=== PATIENT | female | born 1995 | race Two or more races ===

== ENCOUNTER 2018-05-02 11:44 | Emergency (ER) | payer MEDICAID, SELFPAY ==
[~2018-05-02] VITALS: Ht 170.2 cm; Wt 132.9 kg
[2018-05-02] MEDS ORDERED: PREN1TAB60 PO (12:22)
[2018-05-02] MEDS ORDERED: MAALOX/HYOSCYAMINE/LIDOCAINE 45 ML BTL PO ONE (12:30)
[2018-05-02 12:36] LABS: BASOPHILS # (AUTO) 0.06 x10^3/uL (0-0.1); BASOPHILS % (AUTO) 1 % (0-1); EOSINOPHILS # (AUTO) 0.14 x10^3/uL (0-0.4); EOSINOPHILS % (AUTO) 1 % (1-7); LYMPHOCYTES # (AUTO) 3.91 x10^3/uL (1-3.4); LYMPHOCYTES % (AUTO) 28 % (22-44); MD NO; MEAN CORPUSCULAR HEMOGLOBIN 24.3 pg (27.0-34.8); MEAN CORPUSCULAR VOLUME 73.7 fL (80-100); MONOCYTES # (AUTO) 0.63 x10^3/uL (0.2-0.8); MONOCYTES % (AUTO) 5 % (2-9); NEUTROPHILS # (AUTO) 9.11 x10^3/uL (1.8-6.8); NEUTROPHILS % (AUTO) 66 % (42-75); PLATELET COUNT 407 x10^3/uL (130-400); RED BLOOD COUNT 4.78 x10^6/uL (3.82-5.3)
[2018-05-02 12:36] LABS: MICROSCOPIC NOT IND
[2018-05-02 12:42] LABS: ALANINE AMINOTRANSFERASE 19 U/L (12-78); ALBUMIN 3.2 g/dL (3.4-5.0); ANION GAP 9 mmol/L (5-15); CALCIUM 8.7 mg/dL (8.5-10.1); CHLORIDE 108 mmol/L (98-107); CREATININE 0.52 mg/dL (0.55-1.02)
[2018-05-02 12:48] LABS: CULTURE INDICATED? NO
[2018-05-02 13:01] LABS: ALKALINE PHOSPHATASE 86 U/L (45-117); BILIRUBIN,TOTAL 0.2 mg/dL (0.2-1.0); TOTAL PROTEIN 7.5 g/dL (6.4-8.2)
[2018-05-02 13:55] VITALS: BP 125/79
== END 2018-05-02 15:02 | disposition home or self-care (01) ==
LOC: ED 12:29
DX: O26.891 Other specified pregnancy related conditions, first trimester (principal); Z3A.08 8 weeks gestation of pregnancy; K80.70 Calculus of gallbladder and bile duct without cholecystitis without obstruction
CPT/HCPCS: 36415; 76700; 76830; 80053; 81003; 83690; 84702; 85025; 99285

== ENCOUNTER 2018-05-07 19:15 | Emergency (ER) | payer MEDICAID ==
[~2018-05-07] VITALS: Ht 170.2 cm; Wt 125.0 kg
[~2018-05-07 19:15] MED LIST: PREN1TAB60 PO
[2018-05-07 20:20] LABS: BASOPHILS # (AUTO) 0.09 x10^3/uL (0-0.1); BASOPHILS % (AUTO) 1 % (0-1); EOSINOPHILS # (AUTO) 0.15 x10^3/uL (0-0.4); EOSINOPHILS % (AUTO) 1 % (1-7); LYMPHOCYTES # (AUTO) 4.33 x10^3/uL (1-3.4); LYMPHOCYTES % (AUTO) 27 % (22-44); MD NO; MEAN CORPUSCULAR HGB CONC 33.7 g/dL (32.4-35.8); MEAN CORPUSCULAR VOLUME 74.2 fL (80-100); MEAN PLATELET VOLUME 7.9 fL (7.4-10.4); MONOCYTES % (AUTO) 4 % (2-9); NEUTROPHILS # (AUTO) 10.62 x10^3/uL (1.8-6.8); NEUTROPHILS % (AUTO) 67 % (42-75); PLATELET COUNT 383 x10^3/uL (130-400); RED CELL DISTRIBUTION WIDTH 16.7 % (9.6-15.2)
[2018-05-07 20:27] LABS: ALANINE AMINOTRANSFERASE 20 U/L (12-78); ANION GAP 11 mmol/L (5-15); CALCIUM 8.6 mg/dL (8.5-10.1); CHLORIDE 106 mmol/L (98-107); CREATININE 0.54 mg/dL (0.55-1.02)
[2018-05-07 20:29] LABS: ALKALINE PHOSPHATASE 84 U/L (45-117); BILIRUBIN,TOTAL 0.3 mg/dL (0.2-1.0); TOTAL PROTEIN 7.5 g/dL (6.4-8.2)
[2018-05-07] MEDS ORDERED: ACETAMINOPHEN 500 MG TABLET ONE (20:48)
[2018-05-07] MEDS ORDERED: ACETAMINOPHEN 500 MG TABLET PO ONE (21:00)
[2018-05-07 22:04] VITALS: BP 148/86
== END 2018-05-07 22:23 | disposition home or self-care (01) ==
LOC: ED 20:41
DX: K80.20 Calculus of gallbladder without cholecystitis without obstruction (principal); R10.11 Right upper quadrant pain
CPT/HCPCS: 36415; 76700; 80053; 83690; 85025; 99285

== ENCOUNTER 2018-11-07 15:42 | Outpatient (CLI) | payer BC, MEDICAID ==
[~2018-11-07] VITALS: Ht 170.2 cm; Wt 132.7 kg
[2018-11-07 16:05] VITALS: BP 136/75
== END 2018-11-07 16:45 | disposition home or self-care (01) ==
LOC: LDOP 15:42
PROVIDERS: ATTEND Student in an Organized Health Care Education/Training Program
DX: O36.8130 Decreased fetal movements, third trimester, not applicable or unspecified (principal); Z3A.37 37 weeks gestation of pregnancy
CPT/HCPCS: 59025; 99211; G0463

== ENCOUNTER 2019-11-23 10:52 | Inpatient (IN) | payer MEDICAID, OTHER ==
[~2019-11-23] VITALS: Ht 170.2 cm; Wt 143.6 kg
[~2019-11-23 10:52] MED LIST changes: +LABE100T6 PO; +OXYC-302 PO
[2019-11-23 11:41] LABS: BASOPHILS # (AUTO) 0.06 x10^3/uL (0-0.1); BASOPHILS % (AUTO) 1 % (0-1); EOSINOPHILS # (AUTO) 0.09 x10^3/uL (0-0.4); EOSINOPHILS % (AUTO) 1 % (1-7); LYMPHOCYTES # (AUTO) 2.38 x10^3/uL (1-3.4); LYMPHOCYTES % (AUTO) 19 % (22-44); MD NO; MEAN CORPUSCULAR HEMOGLOBIN 25.3 pg (27.0-34.8); MEAN CORPUSCULAR HGB CONC 33.2 g/dL (32.4-35.8); MEAN CORPUSCULAR VOLUME 76.3 fL (80-100); MEAN PLATELET VOLUME 8.6 fL (7.4-10.4); MONOCYTES % (AUTO) 4 % (2-9); NEUTROPHILS # (AUTO) 9.63 x10^3/uL (1.8-6.8); NEUTROPHILS % (AUTO) 76 % (42-75); PLATELET COUNT 397 x10^3/uL (130-400); RED BLOOD COUNT 4.53 x10^6/uL (3.82-5.3); RED CELL DISTRIBUTION WIDTH 16.8 % (9.6-15.2)
[2019-11-23 11:54] VITALS: BP 188/111
[2019-11-23 11:56] LABS: CHLORIDE 106 mmol/L (98-107)
[2019-11-23] MEDS ORDERED: PLEASE ENTER HEIGHT AND WEIGHT MC SCH (12:00)
[2019-11-23] MEDS ORDERED: niFEDipine ER 30 MG TABLET.ER PO ONE ×2 (12:00→12:30)
[2019-11-23] MEDS: SODIUM CHLORIDE FLUSH 10ML SYR IVF SCH ×2 (12:00→21:00)
[2019-11-23] MEDS ORDERED: niFEDipine ER 30 MG TABLET.ER ONE (12:00)
[2019-11-23 12:04] LABS: ALANINE AMINOTRANSFERASE 15 U/L (12-78); ALBUMIN 2.3 g/dL (3.4-5.0); ALKALINE PHOSPHATASE 107 U/L (45-117); ANION GAP 10 mmol/L (5-15); BILIRUBIN,TOTAL 0.2 mg/dL (0.2-1.0); CALCIUM 8.9 mg/dL (8.5-10.1); CREATININE 0.54 mg/dL (0.55-1.02); TOTAL PROTEIN 7.6 g/dL (6.4-8.2)
[2019-11-23 12:36] LABS: MICROSCOPIC INDICATED
[2019-11-23] MEDS ORDERED: LABETALOL 5MG/ML, 20ML ONE ×2 (13:17→19:09)
[2019-11-23] MEDS ORDERED: LABETALOL 5MG/ML, 20ML IVPush PRN ×6 (13:30→19:30)
[2019-11-23] MEDS ORDERED: hydrALAzine 20 MG/ML, 1ML IVPush ONE ×2 (13:30→19:30)
[2019-11-23] MEDS ORDERED: BETAMETHASONE 6 MG/ML, 5ML IM ONE (13:32)
[2019-11-23] MEDS ORDERED: LACTATED RINGERS 1,000 ML IV PRN (13:33)
[2019-11-23] MEDS: MAGNESIUM SULF. PMX 20GM/500ML 500 ML IV SCH ×3 (13:58→22:00)
[2019-11-23] MEDS ORDERED: BETAMETHASONE 6 MG/ML, 5ML IM SCH (14:00)
[2019-11-23] MEDS ORDERED: LACTATED RINGERS 1,000 ML IVBOLUS ONE (14:00)
[2019-11-23] MEDS ORDERED: SODIUM CITRATE/CITRIC ACID 30 ML UDC PO ONE (14:00)
[2019-11-23] MEDS ORDERED: METOCLOPRAMIDE 5 MG/ML, 2ML IV ONE (14:00)
[2019-11-23] MEDS ORDERED: MAGNESIUM SULFATE PMX 4GM/100M 100 ML IVPB ONE (14:00)
[2019-11-23] MEDS ORDERED: METOCLOPRAMIDE 5 MG/ML, 2ML ONE (14:06)
[2019-11-23] MEDS ORDERED: SODIUM CITRATE/CITRIC ACID 30 ML UDC ONE (14:07)
[2019-11-23] MEDS ORDERED: OXYTOCIN 10 UNITS/ML, 1ML ONE (14:08)
[2019-11-23] MEDS ORDERED: ONDANSETRON 2MG/ML, 2ML ONE (14:08)
[2019-11-23] MEDS ORDERED: DEXAMETHASONE 4 MG/ML, 1ML ONE (14:08)
[2019-11-23] MEDS ORDERED: KETOROLAC 30 MG/1 ML ONE ×2 (14:08→19:19)
[2019-11-23] MEDS ORDERED: FENTANYL PF 100 MCG/2ML ONE (14:08)
[2019-11-23] MEDS ORDERED: CEFAZOLIN 1,000 MG ONE (14:08)
[2019-11-23] MEDS ORDERED: EPHEDRINE 50 MG/ML, 1ML ONE (14:08)
[2019-11-23] MEDS ORDERED: PHENYLEPHRINE 10 MG/ML ONE (14:08)
[2019-11-23] MEDS ORDERED: NEWBORN KIT ONE (14:15)
[2019-11-23] MEDS ORDERED: OXYTOCIN 30U/ 0.9% NaCL 500ML 0 ML ONE (14:16)
[2019-11-23] MEDS ORDERED: EPHEDRINE 50 MG/ML, 1ML IVPush PRN (14:30)
[2019-11-23] MEDS ORDERED: ALBUTEROL SULFATE 2.5 MG/3 ML NPPB PRN (14:30)
[2019-11-23] MEDS ORDERED: FENTANYL PF 100 MCG/2ML IV PRN (14:30)
[2019-11-23] MEDS ORDERED: HYDROcodone/APAP 7.5-325MG/15ML UDC PO PRN (14:30)
[2019-11-23] MEDS ORDERED: hydrALAzine 20 MG/ML, 1ML IV PRN (14:30)
[2019-11-23] MEDS ORDERED: LABETALOL 5MG/ML, 20ML IV PRN (14:30)
[2019-11-23] MEDS ORDERED: MEPERIDINE/PF 25MG/0.5ML IVPush PRN (14:30)
[2019-11-23] MEDS ORDERED: HYDROmorphone 2 MG/ML, 1ML IVPush PRN (14:30)
[2019-11-23] MEDS ORDERED: PROMETHAZINE 25 MG/ML, 1ML IV PRN (14:30)
[2019-11-23] MEDS ORDERED: OXYcodone 5 MG/5 ML ORAL.SOL UDC PO PRN (14:30)
[2019-11-23] MEDS ORDERED: ONDANSETRON 2MG/ML, 2ML IVPush PRN (14:30)
[2019-11-23] MEDS ORDERED: MIDAZOLAM 1 MG/ML, 2ML IV PRN (14:30)
[2019-11-23] MEDS ORDERED: HYDROmorphone 2 MG/ML, 1ML ONE (15:02)
[2019-11-23] MEDS ORDERED: METOCLOPRAMIDE 5 MG/ML, 2ML IV PRN (15:30)
[2019-11-23] MEDS ORDERED: MORPHINE SULFATE 4 MG/ML, 1ML IVPush PRN (15:30)
[2019-11-23] MEDS ORDERED: ACETAMINOPHEN 325 MG TABLET PO PRN (15:30)
[2019-11-23] MEDS ORDERED: OXYcodone IR 5MG TABLET PO PRN (15:30)
[2019-11-23] MEDS ORDERED: MISOPROSTOL 200 MCG TABLET PR PRN (15:30)
[2019-11-23] MEDS ORDERED: ONDANSETRON 2MG/ML, 2ML IV PRN (15:30)
[2019-11-23] MEDS ORDERED: SIMETHICONE 80 MG CHEW TAB PO PRN (15:30)
[2019-11-23] MEDS ORDERED: CARBOPROST TROMETHAMINE 250 MCG/ML, 1ML IM PRN (15:30)
[2019-11-23] MEDS ORDERED: IBUPROFEN 800 MG TABLET PO PRN (15:30)
[2019-11-23] MEDS ORDERED: OXYTOCIN 30U/ 0.9% NaCL 500ML 500 ML ONE (16:08)
[2019-11-23] MEDS: OXYTOCIN 30U/ 0.9% NaCL 500ML 500 ML IV SCH (16:20)
[2019-11-23] MEDS: LACTATED RINGERS 1,000 ML IV SCH ×2 (16:21→19:30)
[2019-11-23] MEDS ORDERED: OXYcodone/APAP 5/325MG TABLET ONE (19:19)
[2019-11-23] MEDS: OXYcodone/APAP 5/325MG TABLET PO PRN (19:20)
[2019-11-23] MEDS: KETOROLAC 30 MG/1 ML IV SCH (19:21)
[2019-11-23 20:01] LABS: ALANINE AMINOTRANSFERASE 19 U/L (12-78); ALBUMIN 2.5 g/dL (3.4-5.0); ANION GAP 10 mmol/L (5-15); CALCIUM 8.5 mg/dL (8.5-10.1); CHLORIDE 108 mmol/L (98-107); CREATININE 0.51 mg/dL (0.55-1.02)
[2019-11-23 20:03] LABS: ALKALINE PHOSPHATASE 111 U/L (45-117); BILIRUBIN,TOTAL 0.2 mg/dL (0.2-1.0); TOTAL PROTEIN 8.4 g/dL (6.4-8.2)
[2019-11-23 20:15] LABS: BASOPHILS % (AUTO) 0 % (0-1); EOSINOPHILS % (AUTO) 0 % (1-7); LYMPHOCYTES # (AUTO) 1.32 x10^3/uL (1-3.4); LYMPHOCYTES % (AUTO) 8 % (22-44); MD NO; MEAN CORPUSCULAR HEMOGLOBIN 25.2 pg (27.0-34.8); MEAN CORPUSCULAR HGB CONC 32.4 g/dL (32.4-35.8); MEAN CORPUSCULAR VOLUME 77.7 fL (80-100); MEAN PLATELET VOLUME 8.7 fL (7.4-10.4); MONOCYTES # (AUTO) 0.11 x10^3/uL (0.2-0.8); MONOCYTES % (AUTO) 1 % (2-9); NEUTROPHILS # (AUTO) 15.75 x10^3/uL (1.8-6.8); NEUTROPHILS % (AUTO) 92 % (42-75); PLATELET COUNT 394 x10^3/uL (130-400); RED BLOOD COUNT 5.01 x10^6/uL (3.82-5.3); RED CELL DISTRIBUTION WIDTH 16.9 % (9.6-15.2)
[2019-11-24] MEDS: OXYTOCIN 30U/ 0.9% NaCL 500ML 500 ML IV SCH ×3 (01:28→21:28)
[2019-11-24] MEDS: LACTATED RINGERS 1,000 ML IV SCH ×6 (01:28→21:28)
[2019-11-24] MEDS ORDERED: KETOROLAC 30 MG/1 ML ONE ×3 (01:29→13:49)
[2019-11-24] MEDS ORDERED: OXYcodone/APAP 5/325MG TABLET ONE ×3 (01:29→13:50)
[2019-11-24] MEDS: OXYcodone/APAP 5/325MG TABLET PO PRN ×4 (01:31→19:57)
[2019-11-24] MEDS: KETOROLAC 30 MG/1 ML IV SCH ×4 (01:31→19:59)
[2019-11-24] MEDS ORDERED: LABETALOL 5MG/ML, 20ML IVPush PRN ×6 (03:30)
[2019-11-24] MEDS ORDERED: hydrALAzine 20 MG/ML, 1ML IVPush ONE ×2 (03:30)
[2019-11-24] MEDS ORDERED: LABETALOL 100 MG TABLET ONE (05:34)
[2019-11-24] MEDS: LABETALOL 100 MG TABLET PO SCH ×2 (05:46→18:05)
[2019-11-24] MEDS: MAGNESIUM SULF. PMX 20GM/500ML 500 ML IV SCH (05:51)
[2019-11-24 07:39] LABS: BASOPHILS # (AUTO) 0.01 x10^3/uL (0-0.1); BASOPHILS % (AUTO) 0 % (0-1); EOSINOPHILS % (AUTO) 0 % (1-7); LYMPHOCYTES # (AUTO) 1.65 x10^3/uL (1-3.4); LYMPHOCYTES % (AUTO) 10 % (22-44); MD NO; MEAN CORPUSCULAR HEMOGLOBIN 25.4 pg (27.0-34.8); MEAN CORPUSCULAR HGB CONC 33.2 g/dL (32.4-35.8); MEAN CORPUSCULAR VOLUME 76.7 fL (80-100); MEAN PLATELET VOLUME 8.2 fL (7.4-10.4); MONOCYTES % (AUTO) 4 % (2-9); NEUTROPHILS # (AUTO) 14.97 x10^3/uL (1.8-6.8); NEUTROPHILS % (AUTO) 87 % (42-75); PLATELET COUNT 431 x10^3/uL (130-400); RED BLOOD COUNT 4.87 x10^6/uL (3.82-5.3); RED CELL DISTRIBUTION WIDTH 17.4 % (9.6-15.2)
[2019-11-24] MEDS: PRENATAL VIT/IRON/FA 1 EACH TABLET PO SCH (09:00)
[2019-11-24] MEDS: SODIUM CHLORIDE FLUSH 10ML SYR IVF SCH ×2 (09:00→21:00)
[2019-11-24 15:30] VITALS: BP 137/87
[2019-11-24 19:24] VITALS: BP 135/83
[2019-11-24] MEDS: DOCUSATE 100 MG CAPSULE PO PRN (19:56)
[2019-11-25] MEDS: OXYcodone/APAP 5/325MG TABLET PO PRN ×2 (00:04→15:37)
[2019-11-25 00:10] VITALS: BP 118/78
[2019-11-25] MEDS: KETOROLAC 30 MG/1 ML IV SCH (01:49)
[2019-11-25] MEDS: LACTATED RINGERS 1,000 ML IV SCH ×2 (03:30→07:28)
[2019-11-25 05:45] VITALS: BP 135/80
[2019-11-25] MEDS: LABETALOL 100 MG TABLET PO SCH ×2 (05:49→17:41)
[2019-11-25] MEDS: OXYTOCIN 30U/ 0.9% NaCL 500ML 500 ML IV SCH (07:28)
[2019-11-25 08:50] VITALS: BP 138/90
[2019-11-25] MEDS: PRENATAL VIT/IRON/FA 1 EACH TABLET PO SCH (09:00)
[2019-11-25] MEDS: IBUPROFEN 600 MG TABLET PO PRN (15:37)
[2019-11-25 16:00] VITALS: BP 133/87
[2019-11-25 19:15] VITALS: BP 121/85
[2019-11-26 00:30] VITALS: BP 134/83
[2019-11-26] MEDS: IBUPROFEN 600 MG TABLET PO PRN ×3 (02:21→19:10)
[2019-11-26] MEDS: OXYcodone/APAP 5/325MG TABLET PO PRN ×3 (02:21→19:10)
[2019-11-26 04:35] VITALS: BP 139/84
[2019-11-26] MEDS: LABETALOL 100 MG TABLET PO SCH ×2 (06:16→18:10)
[2019-11-26 07:20] VITALS: BP 142/98
[2019-11-26] MEDS: PRENATAL VIT/IRON/FA 1 EACH TABLET PO SCH (08:08)
[2019-11-26 12:30] VITALS: BP 141/91
[2019-11-26 18:11] VITALS: BP 138/88
[2019-11-26] MEDS: DOCUSATE 100 MG CAPSULE PO PRN (19:10)
[2019-11-26 20:00] VITALS: BP 150/84
[2019-11-27] VITALS: BP 147/79
[2019-11-27] MEDS: IBUPROFEN 600 MG TABLET PO PRN ×2 (02:57→10:04)
[2019-11-27] MEDS: OXYcodone/APAP 5/325MG TABLET PO PRN ×2 (02:58→10:04)
[2019-11-27 04:37] VITALS: BP 153/95
[2019-11-27] MEDS: LABETALOL 100 MG TABLET PO SCH (05:54)
[2019-11-27] MEDS ORDERED: OXYC-302 PO (07:42)
[2019-11-27] MEDS ORDERED: IBUP-1222 PO (07:42)
[2019-11-27 09:52] VITALS: BP 156/90
[2019-11-27] MEDS: PRENATAL VIT/IRON/FA 1 EACH TABLET PO SCH (10:04)
== END 2019-11-27 10:06 | disposition home or self-care (01) | DRG 540 ==
LOC: LDOP 10:52 → LDIP 12:17 → OBSVTOIN 12:17 → 2NW 11-24 15:43
PROVIDERS: ADMIT Student in an Organized Health Care Education/Training Program; ATTEND Student in an Organized Health Care Education/Training Program
PROC: 10D00Z1 Extraction of Products of Conception, Low, Open Approach (ICD-10-PCS; principal; 2019-11-23)
DX: O11.4 Pre-existing hypertension with pre-eclampsia, complicating childbirth (principal); O60.14X0 Preterm labor third trimester with preterm delivery third trimester, not applicable or unspecified; E66.01 Morbid (severe) obesity due to excess calories; O99.214 Obesity complicating childbirth; O34.211 Maternal care for low transverse scar from previous cesarean delivery; O10.92 Unspecified pre-existing hypertension complicating childbirth; Z37.0 Single live birth; Z3A.34 34 weeks gestation of pregnancy; O76 Abnormality in fetal heart rate and rhythm complicating labor and delivery; Z83.3 Family history of diabetes mellitus
CPT/HCPCS: 36415; 80053; 81001; 82570; 82803; 83735; 84156; 84550; 85025; 86592; 86762; 86850; 86900; 87086; 87806; 88307; G0378; J0690; J0702; J1100; J1170; J1885; J2405; J3010; G0475; J2370; J2590; J2765; J3475; J7120